=== PATIENT | male | born 1995 | race African-American/Black ===

== ENCOUNTER 2023-08-04 14:10 | Emergency (ER) | payer OTHER ==
--- NOTE | 2023-08-04 15:25 | RAD REPORT ---
EXAM DESCRIPTION: CT - CTHCSPWOC - 08/04/2023 2:37 pm CLINICAL HISTORY: Pain;Trauma COMPARISON: No comparisons TECHNIQUE: Axial thin cut noncontrast CT images of the head were obtained. Axial thin cut noncontrast CT images of the cervical spine were obtained. Multiplanar reformatted images were generated and reviewed. All CT scans are performed using dose optimization technique as appropriate and may include automated exposure control or mA/KV adjustment according to patient size. FINDINGS: CT HEAD WITHOUT CONTRAST: No acute hemorrhage, hydrocephalus or extra-axial collection is identified.No areas of brain edema or midline shift. The paranasal sinuses and mastoids are clear.The calvarium is intact. CT CERVICAL SPINE WITHOUT CONTRAST: No fracture or subluxation.No prevertebral soft tissues swelling is identified. IMPRESSION: No acute traumatic intracranial or cervical spine findings.
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
[2023-08-04 15:59] VITALS: BP 139/99; O2SAT 100
== END 2023-08-04 15:46 | disposition home or self-care (01) ==
LOC: ER 14:10
PROC: 0HQ0XZZ Repair Scalp Skin, External Approach (ICD-10-PCS; principal; 2023-08-04)
DX: S01.01XA Laceration without foreign body of scalp, initial encounter (principal)
CPT/HCPCS: 70450; 72125; 99283

== ENCOUNTER → 2023-12-25 | Emergency (ER) | payer OTHER ==
[~2023-12-25] MED LIST: CEFAZOLIN SODIUM 1 GM/VIAL ONE; KETOROLAC 30 MG/ML INJ ONE; NA CHLORIDE 0.9% 1,000 ML ONE; ONDANSETRON 4 MG/2 ML VIAL ONE; TDAP (DIPHTH,PERTUSS(ACELL),TET VAC) 0.5 ML VIAL IMVAC ONE
[2023-12-25 12:26] LABS: Absolute Lymphocytes (CBC) 0.9 K/uL (0.7-4.9); Basophils % 0.7 % (0-1.3); Hematocrit 42.2 % (39.6-49.0); Lymphocytes % 15.7 % (15.3-44.8); MCV 90.3 fL (80-100); MPV 5.6 fL (7.6-11.3); Platelets 450 thou/uL (152-406); RBC Red Blood Cell Count 4.68 M/uL (4.33-5.43)
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
[2023-12-25 12:41] LABS: Albumin 4.3 g/dL (3.4-5.0); Anion Gap 8.5 mEq/L (5.0-15.0); Bilirubin Total 0.5 mg/dL (0.2-1.0); Globulin 4.2 g/dL (2.3-3.5); Potassium 4.5 mEq/L (3.5-5.1); Protein, Total 8.5 g/dL (6.4-8.2)
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
[2023-12-25 14:25] VITALS: BP 116/74; TEMP 97.7; O2SAT 100
== END ==
LOC: ER 11:58
DX: S01.83XA Puncture wound without foreign body of other part of head, initial encounter (principal)
CPT/HCPCS: 85025; 36415; 80053; 70491; Q9967; J2405; J0690; 90471; 96365; 96375; 99285; J7030